=== PATIENT | female | born 1990 | race Caucasian/White ===

== ENCOUNTER 2016-09-09 01:20 | Emergency (ER) | payer OTHER ==
--- NOTE | 2016-09-09 03:47 | ED ---
Alcohol HPI - General Source: patient, EMS Mode of arrival: EMS Limitations: no limitations - History of Present Illness MD Complaint: alcohol intoxication Last Drink: just [employer] -: hour(s) Treatments Prior to Arrival: none <Benji Sewell - Last Filed: 09/09/16 03:40> <Dionicio Way - Last Filed: 09/09/16 09:44> - General Chief Complaint: Alcohol Stated Complaint: overdose Time Seen by Provider: 09/09/16 01:28 - History of Present Illness Initial Comments: This patient is 26-year-old woman who comes to be evaluated for concerned about overdose. The patient states that she had been drinking and then she also smoked some crack and she was concerned about this interacting and so called EMS. Patient is denying any attempts to overdose. (Benji Sewell) - Related Data Home Medications Medication Instructions Recorded Confirmed FLUoxetine HCL [PROzac] 60 mg PO DAILY 09/09/16 09/09/16 buPROPion HCL [Wellbutrin SR] 150 mg PO BID 09/09/16 09/09/16 lamoTRIgine [LaMICtal] 200 mg PO DAILY 09/09/16 09/09/16 Allergies Allergy/AdvReac Type Severity Reaction Status Date / Time No Known Allergies Allergy Verified 09/09/16 07:22 Review of Systems ROS Other: All systems not noted in ROS Statement are negative. Constitutional: Denies: fever, chills, weakness Eyes: Denies: vision change Respiratory: Denies: cough, dyspnea, wheezes Cardiovascular: Denies: chest pain, palpitations, dyspnea on exertion Gastrointestinal: Denies: abdominal pain, nausea, vomiting Genitourinary: Denies: urgency, dysuria, hematuria Musculoskeletal: Denies: back pain Skin: Denies: rash, lesions Neurological: Denies: headache <Benji Sewell - Last Filed: 09/09/16 03:40> ROS Other: All systems not noted in ROS Statement are negative. <Dionicio Way - Last Filed: 09/09/16 09:44> ROS Statement: Those systems with pertinent positive or pertinent negative responses have been documented in the HPI. Past Medical History Past Medical History: No Reported History History of Any Multi-Drug Resistant Organisms: None Reported Past Surgical History: No Surgical Hx Reported Past Psychological History: Bipolar Smoking Status: Light tobacco smoker Past Alcohol Use History: Heavy Past Drug Use History: Cocaine, Marijuana <Benji Sewell - Last Filed: 09/09/16 03:40> General Exam Limitations: no limitations General appearance: alert, in no apparent distress Head exam: Present: atraumatic, normocephalic Eye exam: Present: normal appearance. Absent: scleral icterus, conjunctival injection ENT exam: Present: normal oropharynx Neck exam: Present: normal inspection, full ROM Respiratory exam: Present: normal lung sounds bilaterally. Absent: respiratory distress, wheezes, rales, rhonchi, stridor Cardiovascular Exam: Present: regular rate, normal rhythm, normal heart sounds. Absent: systolic murmur, diastolic murmur, rubs, gallop GI/Abdominal exam: Present: soft. Absent: distended, tenderness, guarding, rebound Extremities exam: Present: normal inspection. Absent: pedal edema Back exam: Present: normal inspection. Absent: CVA tenderness (R), CVA tenderness (L) Neurological exam: Present: alert, oriented X3, normal gait, motor sensory deficit. Absent: CN II-XII intact Skin exam: Present: warm, dry, intact, normal color. Absent: rash <MelodieBenji - Last Filed: 09/09/16 03:40> Disposition <MelodieBenji - Last Filed: 09/09/16 03:40> Time of Disposition: 09:44 <[address] - Last Filed: 09/09/16 09:44> Clinical Impression: Alcoholic intoxication, Cocaine abuse Disposition: HOME SELF-CARE Condition: Good Instructions: Alcohol Intoxication (ED) Referrals: Jero Mortensen DO [Primary Care Provider] - 1-2 days
[2016-09-09 06:18] VITALS: TEMP 97
[2016-09-09 08:22] VITALS: BP 121/63; PULSE 95; RESP 17
[2016-09-09] MEDS ORDERED: ONDANSETRON 4 MG/2 ML VIAL IM STA (09:50)
== END 2016-09-09 10:22 | disposition home or self-care (01) ==
LOC: EC 01:20 → SUPCPDRO 01:20 → EC 10:22
DX: F10.229 Alcohol dependence with intoxication, unspecified (principal); F14.19 Cocaine abuse with unspecified cocaine-induced disorder; F31.9 Bipolar disorder, unspecified; F17.200 Nicotine dependence, unspecified, uncomplicated; Z79.899 Other long term (current) drug therapy
CPT/HCPCS: 99284; 96372; 82075; 80306; J2405